=== PATIENT | male | born 1995 | race Caucasian/White ===

== ENCOUNTER 2017-05-20 15:48 | Emergency (ER) | payer OTHER ==
[~2017-05-20] VITALS: Ht 172.7 cm; Wt 81.6 kg
[~2017-05-20 15:48] MED LIST: CLARITIN10 MG PO; MOTRIN800 MG PO; NEURONTIN300 MG PO; TRIMOX500 MG PO; ULTRAM50 MG PO; VIBRAMYCIN100 MG PO
[2017-05-20] MEDS ORDERED: ROBAXIN500 M1 PO (17:00)
[2017-05-20] MEDS ORDERED: IBUPROFEN600 MG PO (17:02)
== END 2017-05-20 17:11 | disposition home or self-care (01) ==
LOC: ED 15:48
DX: S33.5XXA Sprain of ligaments of lumbar spine, initial encounter (principal); F17.200 Nicotine dependence, unspecified, uncomplicated; X58.XXXA Exposure to other specified factors, initial encounter; Y93.89 Activity, other specified; Y92.89 Other specified places as the place of occurrence of the external cause; Y99.8 Other external cause status